=== PATIENT | female | born 2000 | race Two or more races ===

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

== ENCOUNTER 2018-07-29 14:07 | Emergency (ER) | payer MEDICAID ==
[2018-07-29 14:14] VITALS: BP 127/66
--- NOTE | 2018-07-29 14:38 | EDPHY ---
H & P Stated Complaint: c/o flu like s/s with nausea x1 day and RLQ pain x 3 days Time Seen by Provider: 07/29/18 14:17 HPI/ROS: Chief Complaint: Fevers, chills, cough, malaise, body aches HPI: 18-year-old female presenting with 2 days of fevers, chills, body aches, dry nonproductive cough. Also been having some intermittent lower abdominal pain for the last week. Last menstrual. Was July 03. She does not believe she is . No vaginal discharge or bleeding. No urinary urgency or frequency. No back pain. Has had some nausea but no vomiting. Multiple family members have similar symptoms. She has a history of hypothyroid otherwise no past medical history. ROS: 10 systems were reviewed and were negative except those elements noted in the HPI. PMH: Hypothyroidism Social History: No smoking, no alcohol, no recreational drug use Family History: non-contributory Physical Exam: Gen: Awake, Alert, No Distress HEENT: Nose: no rhinorrhea Eyes: PERRLA, EOMI Mouth: Moist mucosa Neck: Supple, no JVD Chest: nontender, lungs clear to auscultation Heart: S1, S2 normal, no murmur Abd: Soft, non-tender, no guarding Back: no CVA tenderness, no midline tenderness Ext: no edema, non-tender Skin: no rash Neuro: CN II-XII intact, Sensation grossly intact, Strength 5/5 in bilateral upper and lower extremities - Personal History LMP (Females 10-55): Over 28 Days Ago Current Tetanus Diphtheria and Acellular Pertussis (TDAP): Yes - Medical/Surgical History Hx Asthma: No Hx Chronic Respiratory Disease: No Hx Diabetes: No Hx Cardiac Disease: No Hx Renal Disease: No Hx Cirrhosis: No Hx Alcoholism: No Hx HIV/AIDS: No Hx Splenectomy or Spleen Trauma: No Other PMH: migraines. Hypothyroidism - Social History Smoking Status: Never smoked Constitutional: Initial Vital Signs Temperature (C) 36.6 C 07/29/18 14:11 Heart Rate 76 07/29/18 14:11 Respiratory Rate 18 07/29/18 14:11 Blood Pressure 127/66 H 07/29/18 14:11 O2 Sat (%) 98 07/29/18 14:11 O2 Delivery Mode Room Air Allergies/Adverse Reactions: sumatriptan Allergy (Verified 07/11/17 20:25) Home Medications: Medication Instructions Recorded Levothyroxine 07/05/15 Medical Decision Making ED Course/Re-evaluation: 18-year-old presenting with flu-like symptoms. Multiple family members have the same. She does have some abdominal pain but on exam she is completely soft and benign has absolutely no reproducible tenderness whatsoever. I do not feel laboratory evaluation or imaging are indicated at this time. Symptoms consistent with viral syndrome. Will discharge with supportive treatment, follow up with primary care in about a week if symptoms are not improving. Departure - Departure Disposition: Home, Routine, Self-Care Clinical Impression: Viral syndrome Condition: Good Instructions: Viral Syndrome (ED) Additional Instructions: Alternate acetaminophen (1000 mg) with ibuprofen (400 mg) every 4 hours as needed for fevers, chills, aches or pain. Follow up with primary care physician in 4-5 days if symptoms are not improving. Return to the emergency department for worsening pain, uncontrolled fevers or chills, uncontrolled vomiting, or any other concerns. Referrals: MISTI MADERA [Other] - As per Instructions
== END 2018-07-29 14:56 | disposition home or self-care (01) ==
LOC: CED 14:07
DX: B34.9 Viral infection, unspecified (principal); E03.9 Hypothyroidism, unspecified
CPT/HCPCS: 99282-ER